=== PATIENT | female | born 1970 | race Caucasian/White ===

== ENCOUNTER → 2018-11-29 | Outpatient (CLI) | payer OTHER ==
[2018-11-29 09:09] LABS: BASOPHILS # (AUTO) 0.04 x10^3/uL (0-0.1); BASOPHILS % (AUTO) 1 % (0-1); EOSINOPHILS # (AUTO) 0.18 x10^3/uL (0-0.4); EOSINOPHILS % (AUTO) 2 % (1-7); LYMPHOCYTES # (AUTO) 2.27 x10^3/uL (1-3.4); LYMPHOCYTES % (AUTO) 26 % (22-44); MD NO; MEAN CORPUSCULAR HEMOGLOBIN 26.7 pg (27.0-34.8); MEAN CORPUSCULAR HGB CONC 31.8 g/dL (32.4-35.8); MEAN PLATELET VOLUME 8.7 fL (7.4-10.4); MONOCYTES # (AUTO) 0.57 x10^3/uL (0.2-0.8); MONOCYTES % (AUTO) 7 % (2-9); NEUTROPHILS # (AUTO) 5.78 x10^3/uL (1.8-6.8); NEUTROPHILS % (AUTO) 65 % (42-75); PLATELET COUNT 211 x10^3/uL (130-400); RED BLOOD COUNT 5.41 x10^6/uL (3.82-5.3); RED CELL DISTRIBUTION WIDTH 16.2 % (9.6-15.2)
[2018-11-29 09:22] LABS: ALANINE AMINOTRANSFERASE 20 U/L (12-78); ALBUMIN 3.3 g/dL (3.4-5.0); ANION GAP 7 mmol/L (5-15); CHLORIDE 106 mmol/L (98-107); CHOLESTEROL, TOTAL 118 mg/dL (140-239); CREATININE 0.89 mg/dL (0.55-1.02)
[2018-11-29 09:25] LABS: ALKALINE PHOSPHATASE 96 U/L (45-117); BILIRUBIN,TOTAL 0.6 mg/dL (0.2-1.0); HDL CHOL % 33 % (28-40); HDL CHOLESTEROL (DIRECT) 39 mg/dL (40-60); LDL CHOLESTEROL,CALCULATED 44 mg/dL (54-169); LDL/HDL RATIO 1.1 (0.5-3.0); TOTAL PROTEIN 6.9 g/dL (6.4-8.2); TRIGLYCERIDES 177 mg/dL (50-200); VLDL CHOLESTEROL 35 mg/dL (0-25)
[2018-11-29 09:30] LABS: MICROSCOPIC INDICATED
[2018-11-29 09:41] LABS: CULTURE INDICATED? YES
[2018-11-29 10:16] LABS: HEMOGLOBIN A1C 7.3 % (4.2-6.3)
== END | disposition home or self-care (01) ==
LOC: LAB 08:34
PROVIDERS: ATTEND Family Medicine
DX: E11.21 Type 2 diabetes mellitus with diabetic nephropathy (principal); E11.42 Type 2 diabetes mellitus with diabetic polyneuropathy; E78.5 Hyperlipidemia, unspecified; I10 Essential (primary) hypertension
CPT/HCPCS: 36415; 80053; 80061; 81001; 82043; 83036; 85025; 87086

== ENCOUNTER → 2019-03-20 | Outpatient (CLI) | payer OTHER ==
[2019-03-20 12:25] LABS: BASOPHILS # (AUTO) 0.03 x10^3/uL (0-0.1); BASOPHILS % (AUTO) 0 % (0-1); EOSINOPHILS # (AUTO) 0.21 x10^3/uL (0-0.4); EOSINOPHILS % (AUTO) 3 % (1-7); LYMPHOCYTES # (AUTO) 1.72 x10^3/uL (1-3.4); LYMPHOCYTES % (AUTO) 21 % (22-44); MD NO; MEAN CORPUSCULAR HEMOGLOBIN 26.9 pg (27.0-34.8); MEAN CORPUSCULAR HGB CONC 31.5 g/dL (32.4-35.8); MEAN CORPUSCULAR VOLUME 85.5 fL (80-100); MEAN PLATELET VOLUME 8.9 fL (7.4-10.4); MONOCYTES # (AUTO) 0.62 x10^3/uL (0.2-0.8); MONOCYTES % (AUTO) 8 % (2-9); NEUTROPHILS # (AUTO) 5.54 x10^3/uL (1.8-6.8); NEUTROPHILS % (AUTO) 68 % (42-75); PLATELET COUNT 214 x10^3/uL (130-400); RED BLOOD COUNT 5.56 x10^6/uL (3.82-5.3); RED CELL DISTRIBUTION WIDTH 15.6 % (9.6-15.2)
[2019-03-20 12:30] LABS: HCT (SEDRATE) 47.5 % (34.6-47.8)
[2019-03-20 12:32] LABS: MICROSCOPIC INDICATED
[2019-03-20 12:36] LABS: ALANINE AMINOTRANSFERASE 39 U/L (12-78); ALBUMIN 3.8 g/dL (3.4-5.0); ANION GAP 4 mmol/L (5-15); CHLORIDE 108 mmol/L (98-107); CREATININE 0.82 mg/dL (0.55-1.02)
[2019-03-20 12:58] LABS: ALKALINE PHOSPHATASE 101 U/L (45-117); BILIRUBIN,TOTAL 0.6 mg/dL (0.2-1.0); TOTAL PROTEIN 7.3 g/dL (6.4-8.2)
== END | disposition home or self-care (01) ==
LOC: LAB 11:54
PROVIDERS: ATTEND Family Medicine
DX: I77.6 Arteritis, unspecified (principal); R21 Rash and other nonspecific skin eruption
CPT/HCPCS: 36415; 80053; 80074; 81001; 85025; 85651; 86038; 86063; 86140; 86162; 86225; 86235; 86430

== ENCOUNTER 2019-04-16 10:29 | Outpatient (CLI) | payer OTHER | END 2019-04-16 23:59 | disposition home or self-care (01) | LOC: CFH 10:29 | PROVIDERS: ATTEND Family Medicine | DX: R06.02 Shortness of breath (principal) | CPT/HCPCS: 71046 ==

== ENCOUNTER 2019-04-18 10:33 | Outpatient (CLI) | payer OTHER | END 2019-04-18 23:59 | disposition home or self-care (01) | LOC: CFH 10:33 | PROVIDERS: ATTEND Family Medicine | DX: D35.01 Benign neoplasm of right adrenal gland (principal); K57.30 Diverticulosis of large intestine without perforation or abscess without bleeding | CPT/HCPCS: 74176 ==

== ENCOUNTER 2019-04-25 13:17 | Outpatient (CLI) | payer OTHER | END 2019-04-25 23:59 | disposition home or self-care (01) | LOC: LAB 13:17 | PROVIDERS: ATTEND Family Medicine | DX: I77.6 Arteritis, unspecified (principal); N06.9 Isolated proteinuria with unspecified morphologic lesion; R21 Rash and other nonspecific skin eruption; R31.29 Other microscopic hematuria | CPT/HCPCS: 36415; 86038; 86140; 86225; 86235 ==

== ENCOUNTER 2019-05-03 06:43 | Outpatient (CLI) | payer OTHER | END 2019-05-03 23:59 | disposition home or self-care (01) | LOC: CFH 06:43 | PROVIDERS: ATTEND Family Medicine | DX: I08.2 Rheumatic disorders of both aortic and tricuspid valves (principal); I10 Essential (primary) hypertension; E11.21 Type 2 diabetes mellitus with diabetic nephropathy; E78.5 Hyperlipidemia, unspecified; E66.01 Morbid (severe) obesity due to excess calories | CPT/HCPCS: 0399T; 93306 ==

== ENCOUNTER 2019-09-05 10:32 | Day surgery (SDC) | payer BC, OTHER ==
[~2019-09-05] VITALS: Ht 152.4 cm; Wt 84.1 kg
[2019-09-05] MEDS ORDERED: DIPHENHYDRAMINE 50 MG/ML, 1ML IVPush ONE (11:00)
[2019-09-05 11:04] VITALS: BP 107/69
[2019-09-05] MEDS ORDERED: FENTANYL PF 100 MCG/2ML ONE (11:18)
[2019-09-05] MEDS ORDERED: CHLO25TA PO (11:18)
[2019-09-05] MEDS ORDERED: INSU100V8 SQ (11:18)
[2019-09-05] MEDS ORDERED: MIDAZOLAM 1 MG/ML, 2ML ONE (11:18)
[2019-09-05] MEDS ORDERED: MONT10TA9 PO (11:18)
[2019-09-05] MEDS ORDERED: EMPA25TA PO (11:18)
[2019-09-05] MEDS ORDERED: ATOR40TA PO (11:18)
[2019-09-05] MEDS ORDERED: FLUT100B INH (11:18)
[2019-09-05] MEDS ORDERED: METF500T17 PO (11:18)
[2019-09-05] MEDS ORDERED: LISI-170 PO (11:18)
[2019-09-05] MEDS ORDERED: GABA400C PO (11:18)
[2019-09-05] MEDS ORDERED: DIPHENHYDRAMINE 50 MG/ML, 1ML ONE (11:22)
[2019-09-05] MEDS ORDERED: ADENOSINE IV PRN (13:30)
[2019-09-05] MEDS ORDERED: SODIUM CHLORIDE 0.9% IV PRN (13:30)
== END 2019-09-05 15:29 | disposition home or self-care (01) ==
LOC: CACL 10:32
PROVIDERS: ATTEND Internal Medicine Cardiovascular Disease
DX: M34.9 Systemic sclerosis, unspecified (principal); I27.20 Pulmonary hypertension, unspecified; I10 Essential (primary) hypertension; E11.9 Type 2 diabetes mellitus without complications; E78.2 Mixed hyperlipidemia; E66.3 Overweight; Z68.26 Body mass index [BMI] 26.0-26.9, adult; Z79.4 Long term (current) use of insulin; Z79.899 Other long term (current) drug therapy
CPT/HCPCS: 93451; 93463; 99156; 99157; C1769; C1894; J0153; J1200; J2250; J3010

== ENCOUNTER 2020-03-16 12:34 | Outpatient (CLI) | payer BC ==
[~2020-03-16 12:34] MED LIST: ATOR40TA PO; CHLO25TA PO; EMPA25TA PO; FLUT100B INH; GABA400C PO; INSU100V8 SQ; LISI-170 PO; METF500T17 PO; MONT10TA11 PO
== END 2020-03-16 23:59 | disposition home or self-care (01) ==
LOC: CFH 12:34
PROVIDERS: ATTEND Registered Nurse
DX: I08.1 Rheumatic disorders of both mitral and tricuspid valves (principal); I10 Essential (primary) hypertension; R06.02 Shortness of breath
CPT/HCPCS: 93306

== ENCOUNTER 2020-07-22 12:49 | Day surgery (SDC) | payer BC ==
[~2020-07-22] VITALS: Ht 152.4 cm; Wt 88.6 kg
[2020-07-22 14:25] VITALS: BP 131/69
[2020-07-22] MEDS ORDERED: DIPHENHYDRAMINE 50 MG/ML, 1ML IVPush ONE (14:30)
[2020-07-22] MEDS ORDERED: OMEG1CAP23 PO (14:51)
[2020-07-22] MEDS ORDERED: ATOR10TA9 PO (14:51)
[2020-07-22] MEDS ORDERED: CHLO50TA PO (14:51)
[2020-07-22] MEDS ORDERED: INSU100V13 SQ (14:53)
[2020-07-22] MEDS ORDERED: HYDR200T72 PO (14:53)
[2020-07-22] MEDS ORDERED: SITA100T PO (14:53)
[2020-07-22] MEDS ORDERED: L.AC1CAP6 PO (14:56)
[2020-07-22] MEDS ORDERED: ERGO500017 PO (14:56)
[2020-07-22] MEDS ORDERED: VIT1TABL46 PO (14:56)
[2020-07-22] MEDS ORDERED: MACI10TA PO (14:56)
[2020-07-22] MEDS ORDERED: SPIR25TA5 PO (14:56)
[2020-07-22] MEDS ORDERED: RIOC2.5T PO (14:57)
[2020-07-22 15:06] LABS: INTERNATIONAL NORMALIZED RATIO 0.96 (0.93-1.1); PROTHROMBIN TIME 10.2 Seconds (9.6-11.5)
[2020-07-22 15:07] LABS: ANION GAP 6 mmol/L (5-15); CALCIUM 9.7 mg/dL (8.5-10.1); CHLORIDE 104 mmol/L (98-107); CREATININE 1.01 mg/dL (0.55-1.02)
[2020-07-22] MEDS ORDERED: MIDAZOLAM 1 MG/ML, 2ML ONE (16:08)
[2020-07-22] MEDS ORDERED: FENTANYL PF 100 MCG/2ML ONE (16:08)
[2020-07-22] MEDS ORDERED: DIPHENHYDRAMINE 50 MG/ML, 1ML ONE (16:22)
[2020-07-22] MEDS ORDERED: POTASSIUM CHLORIDE 20 MEQ TAB.ER.PRT PO ONE (17:00)
== END 2020-07-22 17:03 | disposition home or self-care (01) ==
LOC: CACL 12:49
PROVIDERS: ATTEND Internal Medicine Cardiovascular Disease
DX: I27.20 Pulmonary hypertension, unspecified (principal); E11.9 Type 2 diabetes mellitus without complications; G47.30 Sleep apnea, unspecified; E78.5 Hyperlipidemia, unspecified; M34.9 Systemic sclerosis, unspecified; Z79.4 Long term (current) use of insulin; Z88.8 Allergy status to other drugs, medicaments and biological substances; Z79.899 Other long term (current) drug therapy; Z98.890 Other specified postprocedural states
CPT/HCPCS: 36415; 80048; 83880; 85610; 93451; C1769; C1894; J1200; J2250; J3010; 99156

== ENCOUNTER → 2021-06-25 | Outpatient (CLI) | payer SELFPAY ==
[~2021-06-25] MED LIST changes: +ATOR10TA9 PO; +CHLO50TA PO; +ERGO500017 PO; +HYDR200T72 PO; +INSU100V13 SQ; +L.AC1CAP6 PO; +MACI10TA PO; -MONT10TA11 PO; +MONT10TA17 PO; +OMEG1CAP23 PO; +RIOC2.5T PO; +SITA100T PO; +SPIR25TA5 PO; +VIT1TABL46 PO
[2021-06-25 14:41] LABS: MEAN CORPUSCULAR HEMOGLOBIN 25.9 pg (27.0-34.8); MEAN CORPUSCULAR HGB CONC 32.5 g/dL (32.4-35.8); MEAN PLATELET VOLUME 7.6 fL (7.4-10.4); PLATELET COUNT 199 x10^3/uL (130-400); RED BLOOD COUNT 5.36 x10^6/uL (3.82-5.3); RED CELL DISTRIBUTION WIDTH 16.9 % (9.6-15.2)
[2021-06-25 14:54] LABS: ALANINE AMINOTRANSFERASE 24 U/L (12-78); ALBUMIN 3.3 g/dL (3.4-5.0); ANION GAP 8 mmol/L (5-15); CHLORIDE 103 mmol/L (98-107)
[2021-06-25 14:59] LABS: ALKALINE PHOSPHATASE 84 U/L (45-117); BILIRUBIN,TOTAL 0.6 mg/dL (0.2-1.0); CREATININE 1.09 mg/dL (0.55-1.02); TOTAL PROTEIN 7.3 g/dL (6.4-8.2)
[2021-06-25 15:03] LABS: INTERNATIONAL NORMALIZED RATIO 0.99 (0.93-1.1); PROTHROMBIN TIME 10.6 Seconds (9.6-11.5)
[2021-06-25 15:50] LABS: BAND#(MANUAL) 0.09 x10^3/uL; BANDS%(MANUAL) 1 % (0-7); EOS#(MANUAL) 0.26 x10^3/uL (0.0-0.4); EOS% (MANUAL) 3 % (1-7); LYMPH#(MANUAL) 1.79 x10^3/uL (1-3.4); LYMPHS% (MANUAL) 21 % (22-44); MONOS#(MANUAL) 0.77 x10^3/uL (0.3-2.7); MONOS% (MANUAL) 9 % (2-9); SEG#(MANUAL) 5.61 x10^3/uL (1.8-6.8); SEGS% (MANUAL) 66 % (42-75)
[2021-06-25 15:51] LABS: <PLATELET ESTIMATE> ADEQUATE; <PLT MORPHOLOGY> NORMAL PLT MORPH; ANISOCYTOSIS 1+
== END | disposition home or self-care (01) ==
LOC: LAB 14:25
PROVIDERS: ATTEND Internal Medicine Cardiovascular Disease
DX: I10 Essential (primary) hypertension (principal); E78.5 Hyperlipidemia, unspecified; E78.2 Mixed hyperlipidemia; I27.21 Secondary pulmonary arterial hypertension
CPT/HCPCS: 36415; 80053; 83880; 85025; 85610; 85730